=== PATIENT | female | born 1980 | race Caucasian/White ===

== ENCOUNTER 2016-11-18 08:39 | Emergency (ER) | payer OTHER ==
[~2016-11-18] VITALS: Ht 149.9 cm; Wt 59.9 kg
[~2016-11-18 08:39] MED LIST: DOCUSATE SODIU100 MG PO; FLEXERIL10 MG PO; MOTRIN 800MG T800 MG PO; PERCOCET 325 MG1 TA2 PO; SUBOXONE 8 MG-1 EACH SL
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
[2016-11-18 08:44] VITALS: BP 134/80
[2016-11-18] MEDS ORDERED: VITAFOL ULTRA1 EACH PO (08:51)
== END 2016-11-18 08:51 ==
LOC: ERH 08:39
DX: O99.89 Other specified diseases and conditions complicating pregnancy, childbirth and the puerperium (principal); R10.9 Unspecified abdominal pain; V43.52XA Car driver injured in collision with other type car in traffic accident, initial encounter; Z3A.34 34 weeks gestation of pregnancy

== ENCOUNTER 2016-12-26 18:17 | Inpatient (IN) | payer OTHER ==
[~2016-12-26] VITALS: Ht 152.4 cm; Wt 61.2 kg
[~2016-12-26 18:17] MED LIST changes: +VITAFOL ULTRA1 EACH PO
[2016-12-26 18:45] LABS: ABSOLUTE BASOPHIL COUNT 0.1 /CUMM (0.0-0.2); ABSOLUTE EOSINOPHIL COUNT 0.3 /CUMM (0.0-0.7); ABSOLUTE GRANULOCYTE CT 11.5 /CUMM (1.4-6.5); ABSOLUTE LYMPH COUNT 1.9 /CUMM (1.2-3.4); ABSOLUTE MONOCYTE COUNT 1.1 /CUMM (0.10-0.60); BASOPHIL % 0.5 % (0.0-2.0); EOSINOPHIL % 1.8 % (0-5); GRANULOCYTE % 77.4 % (42.2-75.2); MEAN CORPUSCULAR HGB 28.8 PG (27.0-31.0); MEAN CORPUSCULAR HGB CONC 33.6 G/DL (33.0-37.0); MEAN CORPUSCULAR VOLUME 85.7 FL (81.0-99.0); MEAN PLATELET VOLUME 9.8 FL (7.4-10.4); PLATELET COUNT 254 /CUMM (130-400); RBC DISTRIBUTION WIDTH 13.9 % (11.5-14.5); RED BLOOD CELL CT 4.32 /CUMM (4.20-5.40); WHITE BLOOD CELL COUNT 14.9 /CUMM (4.8-10.8)
--- NOTE | 2016-12-26 19:38 | History & Physical ---
General Information and HPI MD Statement: I have seen and personally examined MAI WEBBER and documented this H&P. The patient is a 36 year old female at [39] weeks and [5] days gestation who presented with a chief complaint of [active labor]. History of Present Illness: 36yo in active labor. sig for pos cocaine and suboxone maint. Allergies/Medications Allergies: Coded Allergies: NO KNOWN ALLERGIES (05/01/16) Home Med list Buprenorphine HCl/Naloxone HCl (Suboxone 8 MG-2 MG Sl Film) 1 EACH FILM 2 STR SL DAILY UNKNOWN (Reported) Pnv#67/Iron Ps/FA Cmb#1/Dha (Vitafol Ultra Softgel) 29 MG IRON-1 MG-200 MG CAPSULE 1 TAB PO DAILY (Reported) Past History networking specialist History : 7 Para: 2 Last Menstrual Period: 01/26/2015 Past networking specialist History: none (2 vaginal deliveries) Medical History Neurological: NONE EENT: NONE Cardiovascular: NONE Respiratory: NONE Gastrointestinal: NONE Hepatic: NONE Renal: NONE Musculoskeletal: NONE Psychiatric: NONE Endocrine: NONE Blood Disorders: NONE Cancer(s): NONE MEDICAL SUPPORT ASSISTANT/Reproductive: NONE Surgical History Pertinent Surgical History: T+A Review of Systems Review of Systems Constitutional: Reports: no symptoms. EENTM: Reports: no symptoms. Cardiovascular: Reports: no symptoms. Respiratory: Reports: no symptoms. GI: Reports: no symptoms. Genitourinary: Reports: no symptoms. Musculoskeletal: Reports: no symptoms. Skin: Reports: no symptoms. Neurological/Psychological: Reports: no symptoms. Hematologic/Endocrine: Reports: no symptoms. Immunologic/Allergic: Reports: no symptoms. All Other Systems: Reviewed and Negative Exam & Diagnostic Data Obstetric Exam Wgt Gained During : 25 Pelvimetry: education specialist Dilation (cm): 10 Effacement (%): 100 Station: 0 Membranes: intact Fluid: light meconium Fundal Height (cm): 40 Multiple Gestation? No Contractions: q2 Infant #1 - FHR Baseline: 145 Category: 1 Estimated Weight: 6.5 Presentation: cephalic Patient for Induction? No Labs Blood Type & Rh: O pos Antibody Screen: neg Hct/Hgb & Platelets #1: 40229 Hct/Hgb & Platelets #2: Rubella: imm VDRL #1: nr VDRL #2: nr HbsAg: neg HIV #1: neg HIV #2 neg 1 Hr PG: NA Group B Strep: neg Initial Ultrasound: wnl Anatomy Ultrasound: wnl Ultrasound for EFW: 6 Genetic Testing: neg ITS Data ITS Data Unobtainable at this time Assessment/Plan Assessment/Plan: active labor cocaine use expectant mgmt social service As Ranked By This Provider Problem List: 1. Core Measures/Miscellaneous Venous Thromboembolism VTE Risk Factors: / VTE Contraindications: No Contraindications VTE Prophylaxis Ordered Inpt: Early Ambulation VTE Diagnosis: No Beta Brannon Is Beta Brannon a Home Med? No Antibiotics Is Patient on Antibiotics? No
--- NOTE | 2016-12-26 19:39 | Labor & Delivery Summary ---
Delivery Summary Vaginal Delivery: Vaginal: vertex Episiotomy/Lacerations: Episiotomy/Lacerations: none Placenta: Placenta: spontanteous, normal, 3 vessel Anesthesia: none Baby's Weight: 6-15 Apgars - 1 Min: 9 Apgars - 5 Min: 9
[2016-12-27 09:19] LABS: ABSOLUTE BASOPHIL COUNT 0.1 /CUMM (0.0-0.2); ABSOLUTE EOSINOPHIL COUNT 0.3 /CUMM (0.0-0.7); ABSOLUTE GRANULOCYTE CT 10.8 /CUMM (1.4-6.5); ABSOLUTE LYMPH COUNT 3.4 /CUMM (1.2-3.4); ABSOLUTE MONOCYTE COUNT 1.5 /CUMM (0.10-0.60); BASOPHIL % 0.4 % (0.0-2.0); EOSINOPHIL % 2.1 % (0-5); GRANULOCYTE % 67.3 % (42.2-75.2); MEAN CORPUSCULAR HGB 29.2 PG (27.0-31.0); MEAN CORPUSCULAR VOLUME 85.9 FL (81.0-99.0); MEAN PLATELET VOLUME 10.2 FL (7.4-10.4); PLATELET COUNT 224 /CUMM (130-400); RBC DISTRIBUTION WIDTH 13.9 % (11.5-14.5); RED BLOOD CELL CT 3.95 /CUMM (4.20-5.40); WHITE BLOOD CELL COUNT 16.1 /CUMM (4.8-10.8)
[2016-12-27 10:36] VITALS: BP 110/70
[2016-12-27] MEDS ORDERED: IBUPROFEN800 M1 PO (14:17)
== END 2016-12-27 22:00 | DRG 560 ==
LOC: CBCO 18:17 → GNO 19:00
PROVIDERS: ADMIT Obstetrics & Gynecology
PROC: 10E0XZZ Delivery of Products of Conception, External Approach (ICD-10-PCS; principal; 2016-12-26)
DX: O99.324 Drug use complicating childbirth (principal); F14.90 Cocaine use, unspecified, uncomplicated; Z3A.39 39 weeks gestation of pregnancy; Z37.0 Single live birth
CPT/HCPCS: GNOP; GNOS; 80307; 81001; J1885; J7120